=== PATIENT | male | born 1990 | race Caucasian/White ===

== ENCOUNTER 2023-08-16 21:35 | Emergency (ER) | payer SELFPAY ==
[~2023-08-16] VITALS: Ht 167.6 cm; Wt 75.0 kg
[2023-08-16 21:40] VITALS: BP 150/96; PULSE 82; RESP 12; TEMP 98.4; O2SAT 98
[2023-08-16] MEDS ORDERED: ONDANSETRON HCL 4MG/2ML INJ IV STA (21:55)
[2023-08-16] MEDS ORDERED: SODIUM CHLORIDE 0.9% 1,000 ML IV ONE (22:00)
== END 2023-08-16 22:00 | disposition left against medical advice (07) ==
LOC: ER 21:35
DX: F10.129 Alcohol abuse with intoxication, unspecified (principal); R11.0 Nausea; R42 Dizziness and giddiness; Y90.0 Blood alcohol level of less than 20 mg/100 ml
CPT/HCPCS: 99283; J7030